=== PATIENT | female | born 1950 | race Two or more races ===

== ENCOUNTER 2018-07-05 19:23 | Emergency (ER) | payer OTHER ==
[~2018-07-05] VITALS: Ht 160 cm; Wt 68.0 kg
--- NOTE | 2018-07-05 20:14 | NUR ---
ED Nurse Note: pt walked in c/o flu like sx since sunday, n/v/body ache and chils but denies fever. Pt AA&ox4, gcs=15, skin warm and dry, resp even and unlabored on RA, -n/v/d at this time, ambulates w/ steady gait, portuguese speaking, will cont monitor. daughter at the bedside.
--- NOTE | 2018-07-05 20:31 | Diagnostic Imaging Report ---
EXAM: XR Chest, 1 View CLINICAL HISTORY: CP TECHNIQUE: Frontal view of the chest. COMPARISON: No relevant prior studies available. FINDINGS: Lungs: No consolidation. Pleural space: Unremarkable. No pneumothorax. Heart: Unremarkable. No cardiomegaly. Mediastinum: Unremarkable. Bones/joints: No acute fracture. IMPRESSION: No acute cardiopulmonary disease.
[2018-07-05] MEDS ORDERED: Isovue-300 100ml vial INJ PRN (20:45)
--- NOTE | 2018-07-05 20:51 | Emergency Room Report ---
History of Present Illness General Chief Complaint: Flu Like Symptoms Source: Patient (Anderson Canela ) Present Illness HPI Patient reports that she has been having vomiting and diarrhea since Sunday She was seen by her primary physician and placed on medication for possible UTI However reports that her symptoms have continued to worsen she has diffuse abdominal pain continues to have vomiting denies any blood in the stool Denies any chest pain or shortness of breath denies any recent travel (Anderson Canela DO) Allergies: Coded Allergies: No Known Allergies (Unverified , 07/05/18) Patient History Past Medical History: see triage record Pertinent Family History: none Last Menstrual Period: GINGER Now: No Reviewed Nursing Documentation: PMH: Agreed; PSxH: Agreed (Anderson Canela DO) Nursing Documentation-PMH Past Medical History: No Stated History (Anderson Canela DO) Review of Systems All Other Systems: negative except mentioned in HPI (Anderson Canela DO) Physical Exam Vital Signs Date Time Temp Pulse Resp B/P (MAP) Pulse Ox O2 Delivery O2 Flow Rate FiO2 07/05/18 19:40 99.9 101 16 94/55 92 Sp02 EP Interpretation: reviewed, normal General Appearance: well appearing, no apparent distress Head: normocephalic, atraumatic Eyes: bilateral eye PERRL, bilateral eye EOMI ENT: hearing grossly normal, TMs + canals normal, uvula midline, dry mucus membranes Neck: full range of motion, supple, no meningismus, no bony tend Respiratory: lungs clear, normal breath sounds, no rhonchi, no respiratory distress, no retraction, no accessory muscle use Cardiovascular #1: normal peripheral pulses, regular rate, rhythm, no edema, no gallop, no JVD, no murmur Gastrointestinal: normal bowel sounds, non tender, soft, no mass, no organomegaly, non-distended, no guarding, no hernia, no pulsatile mass, no rebound Genitourinary: no CVA tenderness Musculoskeletal: back normal Neurologic: oriented x3, responsive, storage engineer III-XII nml as tested, motor strength/ tone normal, sensory intact Psychiatric: mood/affect normal Skin: normal color, no rash, warm/dry, palpation normal Lymphatic: normal inspection, no adenopathy (Anderson Canela DO) Medical Decision Making Diagnostic Impression: Primary Impression: Acute pyelonephritis Additional Impressions: Elevated liver enzymes Transient hypotension ER Course Please see above note. Patient and family report UTI has been on Macrobid and Pyridium for 3 days. Still felt ill and worsened. Discussed with Dr Self. Will accept either to urgent care of [facility]. Discussed results with family and patient. UA with pyuria and nitrites. CT with inflammation of kidney. Antibiotics ordered along with IV hydration and analgesia. Blood pressure better with fluids. Patient improved and stable for transfer. Laboratory Tests Test 07/05/18 20:35 White Blood Count 7.7 K/UL (4.8-10.8) Red Blood Count 4.62 M/UL (4.20-5.40) Hemoglobin 14.2 G/DL (12.0-16.0) Hematocrit 41.5 % (37.0-47.0) Mean Corpuscular Volume 90 FL (80-99) Mean Corpuscular Hemoglobin 30.8 PG (27.0-31.0) Mean Corpuscular Hemoglobin Concent 34.3 G/DL (32.0-36.0) Red Cell Distribution Width 11.3 % (11.6-14.8) L Platelet Count 119 K/UL (150-450) L Mean Platelet Volume 8.0 FL (6.5-10.1) Neutrophils (%) (Auto) % (45.0-75.0) Lymphocytes (%) (Auto) % (20.0-45.0) Monocytes (%) (Auto) % (1.0-10.0) Eosinophils (%) (Auto) % (0.0-3.0) Basophils (%) (Auto) % (0.0-2.0) Differential Total Cells Counted 100 Neutrophils % (Manual) 84 % (45-75) H Lymphocytes % (Manual) 9 % (20-45) L Monocytes % (Manual) 3 % (1-10) Eosinophils % (Manual) 0 % (0-3) Basophils % (Manual) 0 % (0-2) Band Neutrophils 4 % (0-8) Platelet Estimate Decreased L Platelet Morphology Normal Red Blood Cell Morphology Normal Urine Color [place] Urine Appearance Clear Urine pH 6.5 (4.5-8.0) Urine Specific [place] 1.005 (1.005-1.035) Urine Protein 3+ (NEGATIVE) H Urine Glucose (UA) Negative (NEGATIVE) Urine Ketones 1+ (NEGATIVE) H Urine Blood 2+ (NEGATIVE) H Urine Nitrite Positive (NEGATIVE) H Urine Bilirubin 2+ (NEGATIVE) H Urine Ictotest Pending Urine Urobilinogen 12 MG/DL (0.0-1.0) H Urine Leukocyte Esterase 2+ (NEGATIVE) H Urine RBC 2-4 /HPF (0 - 2) H Urine WBC 5-10 /HPF (0 - 2) H Urine Squamous Epithelial Cells Few /LPF (NONE/OCC) Urine Bacteria Few /HPF (NONE) Sodium Level 134 MMOL/L (136-145) L Potassium Level 3.5 MMOL/L (3.5-5.1) Chloride Level 98 MMOL/L (98-107) Carbon Dioxide Level 23 MMOL/L (21-32) Anion Gap 14 mmol/L (5-15) Blood Urea Nitrogen 15 mg/dL (7-18) Creatinine 1.2 MG/DL (0.55-1.30) Estimate Glomerular Filtration Rate 44.5 mL/min (>60) Glucose Level 209 MG/DL (74-106) H Calcium Level 9.5 MG/DL (8.5-10.1) Total Bilirubin 1.4 MG/DL (0.2-1.0) H Direct Bilirubin 0.6 MG/DL (0.0-0.3) H Aspartate Amino Transferase (AST) 47 U/L (15-37) H Alanine Aminotransferase (ALT) 64 U/L (12-78) Alkaline Phosphatase 147 U/L (46-116) H Total Creatine Kinase 396 U/L (26-308) H Creatine Kinase MB 0.8 NG/ML (0.0-3.6) Creatine Kinase MB Relative Index 0.2 Troponin I 0.000 ng/mL (0.000-0.056) Total Protein 7.9 G/DL (6.4-8.2) Albumin 3.4 G/DL (3.4-5.0) Globulin 4.5 g/dL Albumin/Globulin Ratio 0.8 (1.0-2.7) L (Anthony Verde MD) CT/MRI/US Diagnostic Results CT/MRI/US Diagnostic Results : Imaging Test Ordered: abd/pelvis Impression inflammation of kidney Low attenuation changes in the right kidney and enhancement in the urothelium. No hydronephrosis or obstructing stone. Findings suggest pyelonephritis in the proper clinical setting. There is a broader differential. (Anthony Verde MD) Last Vital Signs Date Time Temp Pulse Resp B/P (MAP) Pulse Ox O2 Delivery O2 Flow Rate FiO2 07/05/18 19:40 99.9 101 16 94/55 92 (Anderson Canela DO) Last Vital Signs Date Time Temp Pulse Resp B/P (MAP) Pulse Ox O2 Delivery O2 Flow Rate FiO2 07/06/18 01:27 98.4 70 16 110/49 96 Room Air Status: improved (Anthony Verde MD) Disposition: XFER SHT-TRM HOSP Condition: Serious Scripts No Active Prescriptions or Reported Meds Anderson Canela DO Jul 05, 2018 20:51 Anthony Verde MD Jul 05, 2018 23:02
[2018-07-05 21:46] LABS: HEMATOCRIT 41.5 % (37.0-47.0); HEMOGLOBIN 14.2 G/DL (12.0-16.0); MEAN CORPUSCULAR VOLUME 90 FL (80-99); PLATELET COUNT 119 K/UL (150-450); RED BLOOD COUNT 4.62 M/UL (4.20-5.40); RED CELL DISTRIBUTION WIDTH 11.3 % (11.6-14.8); WHITE BLOOD COUNT 7.7 K/UL (4.8-10.8)
[2018-07-05 22:00] VITALS: BP 116/61
[2018-07-05 22:00] LABS: ANION GAP 14 mmol/L (5-15); BLOOD UREA NITROGEN 15 mg/dL (7-18); CALCIUM 9.5 MG/DL (8.5-10.1); CARBON DIOXIDE 23 MMOL/L (21-32); CHLORIDE 98 MMOL/L (98-107); CREATININE 1.2 MG/DL (0.55-1.30); POTASSIUM 3.5 MMOL/L (3.5-5.1); SODIUM 134 MMOL/L (136-145)
[2018-07-05 22:17] LABS: ALANINE AMINOTRANSFERASE 64 U/L (12-78); ALBUMIN 3.4 G/DL (3.4-5.0); ALBUMIN/GLOBULIN RATIO 0.8 (1.0-2.7); ALKALINE PHOSPHATASE 147 U/L (46-116); ASPARTATE AMINO TRANSFERASE 47 U/L (15-37); BILIRUBIN,TOTAL 1.4 MG/DL (0.2-1.0); CKMB 0.8 NG/ML (0.0-3.6); CREATINE KINASE 396 U/L (26-308)
[2018-07-05 22:21] LABS: BILIRUBIN,DIRECT 0.6 MG/DL (0.0-0.3)
--- NOTE | 2018-07-05 22:43 | Diagnostic Imaging Report ---
EXAM: CT Abdomen and Pelvis With Intravenous Contrast CLINICAL HISTORY: PAIN TECHNIQUE: Axial computed tomography images of the abdomen and pelvis with intravenous contrast. CTDI is 14.79 mGy and DLP is 726 mGy-cm. One or more of the following dose reduction techniques were used: automated exposure control, adjustment of the mA and/or kV according to patient size, use of iterative reconstruction technique. COMPARISON: No relevant prior studies available. FINDINGS: Lung bases: Unremarkable. ABDOMEN: Liver: Fatty liver. Gallbladder and bile ducts: No calcified stones. No ductal dilation. Pancreas: Unremarkable. Spleen: Unremarkable. Adrenals: Unremarkable. Kidneys and ureters: Low attenuation changes in the right kidney and enhancement in the urothelium. No hydronephrosis or obstructing stone. Stomach and bowel: No sameer mural thickening. Nonobstructive bowel gas pattern. PELVIS: Appendix: No findings to suggest acute appendicitis. Bladder: Unremarkable. Reproductive: Probable fibroid uterus. ABDOMEN and PELVIS: Intraperitoneal space: Unremarkable. Bones/joints: Spondylolysis at L5 with grade 1 spondylolisthesis L5-S1. Soft tissues: Edema in the anterior pararenal region. Vasculature: Unremarkable. No abdominal aortic aneurysm. Lymph nodes: No enlarged lymph nodes. IMPRESSION: Low attenuation changes in the right kidney and enhancement in the urothelium. No hydronephrosis or obstructing stone. Findings suggest pyelonephritis in the proper clinical setting. There is a broader differential.
[2018-07-05 23:06] VITALS: BP 112/55
[2018-07-05] MEDS ORDERED: Morphine Sulfate 4mg/ml Inj (IV USE ONLY) IVP ONE (23:30)
[2018-07-06] VITALS: BP 119/58
--- NOTE | 2018-07-06 00:05 | NUR ---
ED Nurse Note: extra blanket provided for comfort.
[2018-07-06 00:21] LABS: APPEARANCE,URINE CLEAR; BILIRUBIN, URINE 2+ (NEGATIVE); GLUCOSE, URINE (UA) NEGATIVE (NEGATIVE); KETONES,URINE 1+ (NEGATIVE); LEUKOCYTE ESTERASE ,URINE 2+ (NEGATIVE); NITRITE,URINE POSITIVE (NEGATIVE); PH,URINE 6.5 (4.5-8.0); PROTEIN,URINE 3+ (NEGATIVE); UROBILINOGEN,URINE 12 MG/DL (0.0-1.0)
[2018-07-06 00:24] LABS: COLOR,URINE ORANGE
[2018-07-06] MEDS ORDERED: cefTRIAXone 1 GM in NS 55 ML IVPB ONE (00:30)
--- NOTE | 2018-07-06 00:30 | NUR ---
ED Nurse Note: pt ambulated to restroom w/ minimal assist, pt ambulatory w/ steady gait, urine sample obtained and sent to lab.
[2018-07-06 01:27] VITALS: BP 110/49
--- NOTE | 2018-07-06 01:27 | NUR ---
ED Nurse Note: spoke with Nurse Guera from [facility] regarding pt's condition and transfer. amb at the bedside for transfer. iv intact and patent.
== END 2018-07-06 01:27 | disposition short-term general hospital (02) ==
LOC: EMR 20:00
DX: N10 Acute pyelonephritis (principal); R74.8 Abnormal levels of other serum enzymes; I95.89 Other hypotension
CPT/HCPCS: 36415; 71045; 74177; 80053; 81003; 82248; 82550; 82553; 84484; 85007; 85025; 93005; 96361; 96365; 96367; 96375; 96376; 99285; J0696; J1956; J2270; J2405; Q9967